=== PATIENT | male | born 1970 | race Caucasian/White ===

== ENCOUNTER 2020-07-11 09:09 | Outpatient (REF) | payer OTHER, SELFPAY ==
[2020-07-11 10:18] LABS: MANUAL DIFF FLAG NO
[2020-07-11 10:21] LABS: Glucose Urine UA NEG (NEG); Leukocyte Esterase Urine NEG (NEG); Nitrite Urine NEG (NEG); Specific Gravity - Urine 1.025 (1.005-1.025); Urine Blood NEG (NEG); Urine Ketones NEG (NEG); Urine Protein NEG (NEG-TRACE)
[2020-07-11 10:22] LABS: Appearance Urine CLEAR; Color Urine YELLOW
[2020-07-11 10:33] LABS: Eosinophils Absolute Auto 0.1 X10*3/uL (0.0-0.4); Eosinophils Percent Auto 2.3 % (0-4); Hematocrit 42.3 % (42-52); Hemoglobin 14.3 g/dl (14.0-18.0); Imm Gran Abs Auto 0.01 X10*3/uL (0.00-0.03); Imm Gran Pct Auto 0.3 % (0.0-0.4); Lymphocytes Absolute Auto 1.4 X10*3/uL (1.2-4.9); Lymphocytes Percent Auto 34.4 % (20-40); Mean Corpuscular HGB Conc 33.8 g/dl (31.0-36.0); Mean Corpuscular Hemoglobin 30.4 pg (27.0-33.0); Mean Corpuscular Volume 89.8 fL (80-98); Mean Platelet Volume 11.7 fL (9.4-12.4); Monocytes Absolute Auto 0.4 X10*3/uL (0.1-1.2); Monocytes Percent Auto 9.6 % (2-11); Neutrophils Absolute Auto 2.1 X10*3/uL (2.0-8.3); Neutrophils Percent Auto 52.4 % (45-73); Platelet Count 182 X10*3/uL (160-400); Red Blood Count 4.71 X10*6/uL (4.60-5.80); Red Cell Distribution Width 12.3 % (11.0-16.0)
[2020-07-11 10:52] LABS: Alanine Aminotransferase 48 U/L (0-40); Albumin Level 4.6 g/dL (3.5-5.0); Alkaline Phosphatase 65 U/L (39-117); Anion Gap 11 (12-20); Aspartate Amino Transferase 23 U/L (5-37); Bilirubin Total 0.7 mg/dL (0.0-1.0); Blood Urea Nitrogen 16 mg/dL (9-16); Calcium 9.3 mg/dL (8.4-10.2); Carbon Dioxide 29 mmol/L (22-29); Chloride 105 mmol/L (96-108); Cholesterol 127 mg/dL; Estimated Glomerular Filt Rate > 60; Glucose Fasting 116 mg/dL (60-99); HDL Cholesterol 26 mg/dL; LDL Cholesterol Calculated 67 mg/dl; Potassium 4.1 mmol/L (3.3-5.1); Sodium 141 mmol/L (135-145); Triglycerides 172 mg/dL
[2020-07-11 11:15] LABS: Prostate Specific Antigen Scr 0.53 ng/mL (<0.05-4.0); Vitamin D 25-OH Total 25.6 ng/mL (>30)
== END 2020-07-11 09:10 | disposition home or self-care (01) ==
LOC: HO.10HDL 09:09
PROVIDERS: Visit Provider Internal Medicine
DX: Z00.00 Encounter for general adult medical examination without abnormal findings (principal); E78.1 Pure hyperglyceridemia; K21.9 Gastro-esophageal reflux disease without esophagitis; J30.1 Allergic rhinitis due to pollen; Z12.5 Encounter for screening for malignant neoplasm of prostate
CPT/HCPCS: 36415; 80053; 80061; 81003; 82306; 84153; 85025

== ENCOUNTER 2020-10-24 08:30 | Day surgery (SDC) | payer OTHER, SELFPAY ==
--- NOTE | 2020-10-24 09:27 | HO.ANESPROP2 ---
[facility] Past Medical History Medical History GERD (gastroesophageal reflux disease) Hyperlipemia Work-related stress Surgical History Surgical History History of vasectomy Hx of tonsillectomy History of Problems with Anesthesia: No Social History Social History Patient Tobacco Use Status: Never used Tobacco Use of substances other than those prescribed or required for medical reasons: No Are you DNR?: No Advance Directives: No Advance Directives Information Provided: Yes Meds Allergies Allergy/AdvReac Type Severity Reaction Status Date / Time No Known Allergies Allergy Unverified 10/22/20 22:38 Active Medications: Current Medications Generic Name Dose Route Start Last Admin Trade Name Freq PRN Reason Stop Dose Admin Sodium Biphosphate/Sodium Phosphate 133 ml 10/24/20 09:23 Sodium Phosphate,[place]-Dibasic 133 Ml Enema [place] ONCE PRN Poor Colonoscopy Prep Results Home Medications Medication Instructions Recorded Confirmed Last Taken Type Claritin-D 24 Hour 1 tab PO DAILY 10/24/20 10/24/20 Unknown History atorvastatin 20 mg tablet 1 tab PO DAILY 10/24/20 10/24/20 Unknown History fluoxetine 20 mg capsule 1 cap PO DAILY 10/24/20 10/24/20 Unknown History gemfibrozil 600 mg tablet 1 tab PO BID 10/24/20 10/24/20 Unknown History omeprazole 20 mg capsule,delayed 1 cap PO BID 10/24/20 10/24/20 Unknown History release Exam Exam Date and Time: October 24, [id number] Airway Mallampati Class: III (Small mouth) TM Dist: >3cm Neck ROM: Full Loose/Missing/Broken Teeth: No Heart: RRR Lungs: CTA Assessment and Plan Assessment Anesthesia Assessment: Anesthesia Plan Discussed and Chart Reviewed Final Anesthetic Review History of Problems with Anesthesia: No NPO: Yes ASA Class: II Final Preanesthetic Review: Meds/Allgs Chart Reviewed, Consent Obtained/Reviewed and Anes Risks/Benef Reviewed Patient Risk: Low Procedure Risk: Intermediate Anesthetic Plan Anesthetic Plan: MAC: Disposition: Standard PACU
[2020-10-24 09:33] VITALS: BP 130/87; PULSE 74; RESP 16; TEMP 35.9; O2SAT 98; BMI 31.4
[2020-10-24] MEDS: Lactated Ringers 1,000 ML 50 ML IVCONT (10:25)
[2020-10-24 11:31] VITALS: BP 99/61; PULSE 65; RESP 16; TEMP 36.9; O2SAT 98
--- NOTE | 2020-10-24 11:35 | PM.OP ---
Brief Operative Note Date of Service: 10/24/20 Pre-op diagnosis: GERD, Screening Post-op diagnosis: other (R/O Olivas's, Hiatal hernia, Gastric and duodenal polyps, Colon polyps) Procedure: EGD with biopsies, Colonoscopy to the cecum and TI with biopsy and removal of polyps Surgeon: Kaiden Alvarez Anesthesia: MAC Was an Machine Filler Shredder used for this Procedure?: No Estimated blood loss (mL): 5.0 Pathology: other (A. EJ Junction at 38cm B. Duodenal polyp C. Gastric polyps D. Transverse colon polyp E. Cecal polyp F. Ascending colon polyp G. Polyp at 20cm) Condition: stable Disposition: PACU
[2020-10-24 11:46] VITALS: BP 123/78; PULSE 60; RESP 16; O2SAT 100
[2020-10-24 12:01] VITALS: BP 123/88; PULSE 63; RESP 16; O2SAT 98
--- NOTE | 2020-10-24 14:02 | OP_ITS ---
SURGEON: Kaiden Alvarez MD INDICATIONS: The patient presents for evaluation of gastroesophageal reflux and colorectal cancer screening. Full consent has been obtained from him for this, including risks of bleeding and perforation. PREOPERATIVE DIAGNOSIS: POSTOPERATIVE DIAGNOSIS: PROCEDURE PERFORMED: Esophagogastroduodenoscopy with biopsies, and colonoscopy to cecum and terminal ileum with biopsy and removal of polyps. ESTIMATED BLOOD LOSS: COMPLICATIONS: ANESTHESIA: Monitored anesthesia care. ASSISTANTS: SPECIMENS: PREOPERATIVE DIAGNOSES: Gastroesophageal reflux and colorectal cancer screening. POSTOPERATIVE DIAGNOSES: Gastroesophageal reflux and colorectal cancer screening, hiatal hernia, rule out Olivas's esophagus, gastric and duodenal polyps, colon polyps, diverticulosis, and internal hemorrhoids. DESCRIPTION OF PROCEDURE: The patient was placed in the left lateral decubitus position. The Olympus video gastroscope was passed in the posterior oropharynx and upper esophagus under direct vision. The scope was passed slowly into the distal esophagus. The gastroesophageal junction appeared at 38 cm. This area appeared somewhat irregular with small areas of possible Olivas's mucosa. There was no evidence of any esophagitis nor any lesions. There was a small hiatal hernia. The scope was advanced to pylorus and the duodenum was cannulated to the descending portion. The duodenum including the bulb was carefully inspected. In the duodenal bulb, was an approximately 6 to 8 mm polypoid area that probably represented José Miguel's glands, but biopsies were obtained from it. The scope was withdrawn back in the stomach. The gastric antrum and body appeared normal with good peristalsis. The scope was retroflexed visualizing the proximal stomach carefully, which appeared normal, without any mass or ulceration, other than some hyperplastic appearing gastric polyps. Two of these were biopsied. The scope was withdrawn back into the esophagus. Multiple biopsies were obtained from the EG junction at 38 cm to rule out Olivas's esophagus. Proximal to this, the esophageal mucosa appeared normal. The scope was withdrawn from the patient. He was turned around for colonoscopy. The digital rectal exam revealed no abnormalities. The Olympus video pediatric colonoscope was entered into the rectum and advanced easily to the cecum. Once in the cecum, I did identify cecal pouch with appendiceal orifice and a normal-appearing ileocecal valve. The terminal ileum was cannulated and appeared normal. The scope was withdrawn back in the colon. The entire cecum and ileocecal valve appeared normal other than a 3 mm polyp near the appendiceal orifice, that was biopsied and completely removed with cold biopsy forceps. The scope was then slowly withdrawn assessing all mucosal surfaces carefully. Preparation was excellent. In the ascending colon, transverse colon, and at 20 cm, were less than 5 mm polyps, which were all biopsied and completely removed with cold biopsy forceps. I did not visualize any other polyps, colitis, nor angiodysplasia. There was a mild amount of sigmoid diverticulosis. In the rectum, scope was retroflexed visualizing internal hemorrhoids, but no other pathology. The rectal mucosa appeared normal. The scope was straightened and withdrawn from the patient. He tolerated the procedures well and was returned to the recovery area in stable condition. IMPRESSION: 1. Gastroesophageal reflux, rule out Olivas's esophagus. 2. Hiatal hernia. 3. Gastric polyps. 4. Duodenal bulb polyp. 5. Colon polyps. 6. Diverticulosis. 7. Internal hemorrhoids. PLAN: The results of the biopsy will be checked. If there is evidence of Olivas's esophagus without dysplasia, I would recommend a repeat upper endoscopy in 3 years for surveillance. If any of the colon polyps are tubular adenoma, I would recommend a followup colonoscopy in 5 years. If they are all hyperplastic, I would recommend a followup colonoscopy in 10 years. He will otherwise see me on a p.r.n. basis. He will continue his omeprazole 40 mg daily, which is giving him good relief of the reflux. MD TAMIA Aguilera/GUNNAR / [phone]
== END 2020-10-24 12:30 | disposition home or self-care (01) ==
PROVIDERS: PCP Internal Medicine; Visit Provider Internal Medicine
PROC: (CPT 43239; principal; 2020-10-24 09:40)
DX: Z12.11 Encounter for screening for malignant neoplasm of colon (principal); D12.0 Benign neoplasm of cecum; D12.2 Benign neoplasm of ascending colon; D12.3 Benign neoplasm of transverse colon; K63.5 Polyp of colon; K57.30 Diverticulosis of large intestine without perforation or abscess without bleeding; K64.8 Other hemorrhoids; K21.9 Gastro-esophageal reflux disease without esophagitis; K31.7 Polyp of stomach and duodenum; K44.9 Diaphragmatic hernia without obstruction or gangrene; Z79.899 Other long term (current) drug therapy
CPT/HCPCS: 43239; 45380; 88305; 88342

== ENCOUNTER 2020-11-29 20:34 | Emergency (ER) | payer OTHER, SELFPAY ==
--- NOTE | ~2020-11-29 | CT_ITS ---
EXAMINATION: CT HEAD WITHOUT CONTRAST CLINICAL INFORMATION: Altered mental status. COMPARISON: None TECHNIQUE: Contiguous axial imaging was performed from the skull base to vertex without intravenous administration of contrast. This CT examination was performed using dose optimization techniques as appropriate, variously including the following: *Automated exposure control *Adjustment of mA and/or kV according to patient size (this includes techniques or standardized protocols for targeted exams where dose is matched to indication/reason for exam; i.e. extremities or head) *Use of iterative reconstruction technique DLP: 757 mGy-cm FINDINGS: There is no evidence of acute intracranial hemorrhage or territorial infarction. No abnormal mass effect or midline shift is seen. Lafleur to white matter differentiation is well preserved. No extra-axial fluid collections are identified. The ventricles are normal in size. There is no abnormal attenuation within the brain parenchyma. The osseous structures and soft tissues are normal. The mastoid air cells and visualized portions of the paranasal sinuses are well aerated. CT/CT head/brain wo con IMPRESSION: No acute intracranial pathology.
--- NOTE | ~2020-11-29 | XR_ITS ---
EXAMINATION: XR CHEST CLINICAL INFORMATION: Shortness of breath. COMPARISON: None TECHNIQUE: Frontal view of the chest was obtained. FINDINGS: The lungs are clear. The cardiomediastinal silhouette is normal in size. There is no pleural effusion or pneumothorax. No acute osseous abnormality. XR/XR chest 1V IMPRESSION: No acute cardiopulmonary findings.
[2020-11-29 20:49] VITALS: BP 147/102; PULSE 91; RESP 16; TEMP 36.8; O2SAT 96; BMI 32.1
[2020-11-29 21:23] VITALS: PULSE 84; RESP 15; TEMP 36.9; O2SAT 99
--- NOTE | 2020-11-29 21:24 | PC.NURSE ---
Pt alert and oriented x4, calm and cooperative. Pt denies pain at this time. Pt states he does not remember seizure-like episode. Pt denies headache, dizziness, weakness, or blurred vision at this time. Pt ambulated in room and steady on his feet. IV placed, intact.
[2020-11-29 21:25] LABS: MANUAL DIFF FLAG NO
[2020-11-29 21:26] LABS: Basophils Absolute Auto 0.1 X10*3/uL (0.0-0.2); Basophils Percent Auto 0.9 % (0-2); Eosinophils Absolute Auto 0.2 X10*3/uL (0.0-0.4); Eosinophils Percent Auto 4.2 % (0-4); Hematocrit 42.2 % (42-52); Hemoglobin 14.9 g/dl (14.0-18.0); Imm Gran Abs Auto 0.01 X10*3/uL (0.00-0.03); Imm Gran Pct Auto 0.2 % (0.0-0.4); Lymphocytes Absolute Auto 1.8 X10*3/uL (1.2-4.9); Lymphocytes Percent Auto 33.6 % (20-40); Mean Corpuscular HGB Conc 35.3 g/dl (31.0-36.0); Mean Corpuscular Volume 87.9 fL (80-98); Mean Platelet Volume 12.3 fL (9.4-12.4); Monocytes Absolute Auto 0.8 X10*3/uL (0.1-1.2); Monocytes Percent Auto 14.7 % (2-11); Neutrophils Absolute Auto 2.5 X10*3/uL (2.0-8.3); Neutrophils Percent Auto 46.4 % (45-73); Platelet Count 152 X10*3/uL (160-400); Red Cell Distribution Width 12.5 % (11.0-16.0); White Blood Count 5.3 X10*3/uL (4.8-10.8)
--- NOTE | 2020-11-29 21:49 | ECG_ITS ---
Test Reason : SYNCOPE Blood Pressure : / mmHG Vent. Rate : 086 BPM Atrial Rate : 086 BPM P-R Int : 146 ms QRS Dur : 102 ms QT Int : 364 ms P-R-T Axes : 047 049 009 degrees QTc Int : 435 ms Normal sinus rhythm Normal ECG When compared with ECG of 15-MAY-2004 08:04, No significant change was found Referred By: Abbey Graf Electronically Signed By:ELMA TROY
[2020-11-29 21:56] LABS: Alanine Aminotransferase 76 U/L (0-40); Albumin Level 4.8 g/dL (3.5-5.0); Alkaline Phosphatase 74 U/L (39-117); Anion Gap 14 (12-20); Aspartate Amino Transferase 41 U/L (5-37); Bilirubin Total 0.5 mg/dL (0.0-1.0); Blood Urea Nitrogen 13 mg/dL (9-16); Calcium 9.2 mg/dL (8.4-10.2); Carbon Dioxide 23 mmol/L (22-29); Chloride 108 mmol/L (96-108); Creatinine Clr Calc Pharmacy 113.1; Estimated Glomerular Filt Rate > 60; Glucose Random 98 mg/dL (60-115); Sodium 141 mmol/L (135-145); Total Protein 7.7 g/dL (6.5-8.0)
--- NOTE | 2020-11-29 22:10 | ED_ITS ---
HPI - General Adult General Chief complaint: General Medical Stated complaint: started shaky then passed out Time Seen by Provider: 11/29/20 21:41 History of Present Illness HPI narrative: Patient is a 49-year-old male with a history of coughing upper respiratory symptoms. Patient has been tested for COVID many x2 are negative. Also had COVID vaccine over 2 weeks ago x2. Patient had a coughing spell subsequently felt lightheaded. Eyes roll back. Patient had a syncopal episode. There is no chest pain prior. No diaphoresis. Did feel weak prior. Did not notice any blood in his stool. Is not on any blood thinners. No history of diabetes. No history of high blood pressure. Positive history of high cholesterol. Patient does not smoke. Never had a heart attack never had a stress test. Patient from home. No history of syncope in the past. Did not have any alcohol tonight. No history of blood clots. No history of leg swelling. No history of travel. Related Data Home Medications Medication Instructions Recorded Confirmed Claritin-D 24 Hour 1 tab PO DAILY 10/24/20 10/24/20 atorvastatin 20 mg tablet 1 tab PO DAILY 10/24/20 10/24/20 fluoxetine 20 mg capsule 1 cap PO DAILY 10/24/20 10/24/20 gemfibrozil 600 mg tablet 1 tab PO BID 10/24/20 10/24/20 omeprazole 20 mg capsule,delayed 1 cap PO BID 10/24/20 10/24/20 release Allergies Allergy/AdvReac Type Severity Reaction Status Date / Time No Known Allergies Allergy Verified 11/29/20 21:08 Review of Systems Review of Systems: Positive syncopal episode Positive coughing No nausea no vomiting No diaphoresis All systems reviewed otherwise negative Yes all other systems are reviewed and are negative [facility] Past Medical History Attestation statement: The following information was validated with the patient. Source: unable to obtain Medical History GERD (gastroesophageal reflux disease) Hyperlipemia Work-related stress Surgical History History of vasectomy Hx of tonsillectomy Social History Social History Alcohol intake: never Patient Tobacco Use Status: Never used Tobacco Use of substances other than those prescribed or required for medical reasons: No Advance Directives: No Advance Directives Information Provided: No Physical Exam Vital Signs: Vital Signs: Last Vital Signs Temp 98.4 F 11/29/20 21:23 Pulse 85 11/29/20 22:26 Resp 18 11/29/20 22:26 BP 157/84 H 11/29/20 22:26 Pulse Ox 99 11/29/20 22:26 Body Mass Index 32.1 Appearance: Alert. Oriented X3. No acute distress. Eyes: Pupils equal, round and reactive to light. ENT: Pharynx normal. Neck: Normal inspection. Neck supple. No lymph nodes noted. No crepitus CVS: Normal heart rate and rhythm. Pulses normal. Normal S1 and S2 Respiratory: No respiratory distress. Breath sounds normal. No Wheezing. No rales Abdomen: Soft and nontender. No rigidity. No distention. good BS x4 Skin: Skin warm and dry. Normal skin color. Normal skin turgor. Extremities: No lower extremity edema. Neurovascular intact to all extremities. No Lacerations. No Rash Neuro: Oriented X 3. No motor deficit. No sensory deficit. Moving all extermities. No slurred speech Medical Decision Making MDM Narrative Medical decision making narrative: Patient EKG showed a sinus pattern heart rate is 90 ME QRS QT within normal limits as no acute ST segment elevation noted. Patient's troponin is negative. Not orthostatic. COVID test was negative. Chest x-ray showed no focal infiltrate no pneumonia. Patient's history consistent with having vasovagal episode. Has no significant cardiac risk. Has no chest pain at the time when he had a syncopal episode. Patient felt ligh theaded dizzy prior. Will discharge patient home in stable condition. Lab Data Result diagrams: 11/29/20 21:20 11/29/20 21:20 Labs: Lab Results 11/29/20 11/29/20 11/29/20 Range/Units 21:20 21:20 21:20 WBC 5.3 (4.8-10.8) X10*3/uL RBC 4.80 (4.60-5.80) X10*6/uL Hgb 14.9 (14.0-18.0) g/dl Hct 42.2 (42-52) % MCV 87.9 (80-98) fL MCH 31.0 (27.0-33.0) pg MCHC 35.3 (31.0-36.0) g/dl RDW 12.5 (11.0-16.0) % Plt Count 152 L (160-400) X10*3/uL MPV 12.3 (9.4-12.4) fL Immature Gran % (Auto) 0.2 (0.0-0.4) % Neut % (Auto) 46.4 (45-73) % Lymph % (Auto) 33.6 (20-40) % Brantley % (Auto) 14.7 H (2-11) % Eos % (Auto) 4.2 H (0-4) % Baso % (Auto) 0.9 (0-2) % Lymph # (Auto) 1.8 (1.2-4.9) X10*3/uL Brantley # (Auto) 0.8 (0.1-1.2) X10*3/uL Eos # (Auto) 0.2 (0.0-0.4) X10*3/uL Baso # (Auto) 0.1 (0.0-0.2) X10*3/uL Abs Immat Gran (auto) 0.01 (0.00-0.03) X10*3/uL Absolute Neuts (auto) 2.5 (2.0-8.3) X10*3/uL Absolute Nucleated RBC 0.000 (0.0-0.012) X10*3/uL Nucleated RBC % (auto) 0.0 (0.0-0.2) /100WBC Sodium 141 (135-145) mmol/L Potassium 4.0 (3.3-5.1) mmol/L Chloride 108 (96-108) mmol/L Carbon Dioxide 23 (22-29) mmol/L Anion Gap 14 (12-20) BUN 13 (9-16) mg/dL Creatinine 0.96 (0.5-1.4) mg/dL Estim Creat Clear Calc 113.1 Estimated GFR > 60 Random Glucose 98 (60-115) mg/dL Calcium 9.2 (8.4-10.2) mg/dL Total Bilirubin 0.5 (0.0-1.0) mg/dL AST 41 H D (5-37) U/L ALT 76 H (0-40) U/L Alkaline Phosphatase 74 (39-117) U/L Troponin I High Sens < 3.5 (<3.5-35.0) ng/L Total Protein 7.7 (6.5-8.0) g/dL Albumin 4.8 (3.5-5.0) g/dL COVID-19 (JOSE) (Negative) COVID-19 Clin Com 11/29/20 Range/Units 22:34 WBC (4.8-10.8) X10*3/uL RBC (4.60-5.80) X10*6/uL Hgb (14.0-18.0) g/dl Hct (42-52) % MCV (80-98) fL MCH (27.0-33.0) pg MCHC (31.0-36.0) g/dl RDW (11.0-16.0) % Plt Count (160-400) X10*3/uL MPV (9.4-12.4) fL Immature Gran % (Auto) (0.0-0.4) % Neut % (Auto) (45-73) % Lymph % (Auto) (20-40) % Brantley % (Auto) (2-11) % Eos % (Auto) (0-4) % Baso % (Auto) (0-2) % Lymph # (Auto) (1.2-4.9) X10*3/uL Brantley # (Auto) (0.1-1.2) X10*3/uL Eos # (Auto) (0.0-0.4) X10*3/uL Baso # (Auto) (0.0-0.2) X10*3/uL Abs Immat Gran (auto) (0.00-0.03) X10*3/uL Absolute Neuts (auto) (2.0-8.3) X10*3/uL Absolute Nucleated RBC (0.0-0.012) X10*3/uL Nucleated RBC % (auto) (0.0-0.2) /100WBC Sodium (135-145) mmol/L Potassium (3.3-5.1) mmol/L Chloride (96-108) mmol/L Carbon Dioxide (22-29) mmol/L Anion Gap (12-20) BUN (9-16) mg/dL Creatinine (0.5-1.4) mg/dL Estim Creat Clear Calc Estimated GFR Random Glucose (60-115) mg/dL Calcium (8.4-10.2) mg/dL Total Bilirubin (0.0-1.0) mg/dL AST (5-37) U/L ALT (0-40) U/L Alkaline Phosphatase (39-117) U/L Troponin I High Sens (<3.5-35.0) ng/L Total Protein (6.5-8.0) g/dL Albumin (3.5-5.0) g/dL COVID-19 (JOSE) Negative (Negative) COVID-19 Clin Com See Note Discharge Plan Discharge Clinical Impression: Syncope Patient Disposition: Home, Self-Care Instructions: Syncope (ED) Prescriptions: No Action atorvastatin 20 mg tablet 1 tab PO DAILY RF: 0 omeprazole 20 mg capsule,delayed release(DR/EC) 1 cap PO BID RF: 0 fluoxetine 20 mg capsule 1 cap PO DAILY RF: 0 gemfibrozil 600 mg tablet 1 tab PO BID RF: 0 Claritin-D 24 Hour 1 tab PO DAILY RF: 0 Referrals: Akash Daigle MD [Primary Care Provider] - 2 days
[2020-11-29 22:22] LABS: Troponin-I High Sensitivity < 3.5 ng/L (<3.5-35.0)
[2020-11-29 22:23] VITALS: BP 144/82; PULSE 84
[2020-11-29 22:24] VITALS: BP 157/82; PULSE 86
[2020-11-29 22:25] VITALS: BP 157/84; PULSE 85
[2020-11-29 22:26] VITALS: BP 157/84; PULSE 85; RESP 18; O2SAT 99
[2020-11-29 23:15] LABS: COVID-19 Test Negative (Negative); IDNOW Serial# 55D5AD1C
[2020-11-30 01:00] VITALS: BP 136/82; PULSE 76; TEMP 37; O2SAT 95
--- NOTE | 2020-11-30 01:08 | PC.NURSE ---
Pt alert and oriented x4, calm and cooperative. Pt denies pain. Pt ambulating independently and steady on his feet. Pt denies weakness, dizziness, or blurred vision at this time. Pt and educated on dc by RN and . IV removed. Vitals stable.
== END 2020-11-30 01:09 | disposition home or self-care (01) ==
PROVIDERS: Emergency Provider Emergency Medicine Emergency Medical Services; PCP Internal Medicine
DX: R55 Syncope and collapse (principal); R05.9 Cough, unspecified; Z20.822 Contact with and (suspected) exposure to COVID-19; Z79.899 Other long term (current) drug therapy
CPT/HCPCS: 36415; 70450; 71045; 80053; 84484; 85025; 87635; 93005; 99284

== ENCOUNTER 2021-07-02 08:32 | Outpatient (REF) | payer SELFPAY ==
[2021-07-02 08:43] LABS: MANUAL DIFF FLAG NO
[2021-07-02 09:13] LABS: Basophils Percent Auto 0.5 % (0-2); Eosinophils Absolute Auto 0.1 X10*3/uL (0.0-0.4); Hemoglobin 15.6 g/dl (14.0-18.0); Imm Gran Abs Auto 0.03 X10*3/uL (0.00-0.03); Imm Gran Pct Auto 0.5 % (0.0-0.4); Lymphocytes Absolute Auto 1.2 X10*3/uL (1.2-4.9); Lymphocytes Percent Auto 18.6 % (20-40); Mean Corpuscular HGB Conc 34.7 g/dl (31.0-36.0); Mean Corpuscular Hemoglobin 30.5 pg (27.0-33.0); Mean Corpuscular Volume 87.9 fL (80.0-98.0); Mean Platelet Volume 11.1 fL (9.4-12.4); Monocytes Absolute Auto 0.7 X10*3/uL (0.1-1.2); Monocytes Percent Auto 10.4 % (2-11); Neutrophils Absolute Auto 4.4 x10*3/uL (2.0-8.3); Platelet Count 187 X10*3/uL (160-400); Red Blood Count 5.12 X10*6/uL (4.60-5.80); Red Cell Distribution Width 12.3 % (11.0-16.0); White Blood Count 6.5 X10*3/uL (4.8-10.8)
[2021-07-02 09:25] LABS: Appearance Urine CLEAR; Color Urine YELLOW; Glucose Urine UA NEG (NEG); Leukocyte Esterase Urine NEG (NEG); Nitrite Urine NEG (NEG); Specific Gravity - Urine 1.025 (1.005-1.025); Urine Blood NEG (NEG); Urine Ketones NEG (NEG); Urine Protein NEG (NEG-TRACE)
[2021-07-02 09:34] LABS: Alanine Aminotransferase 61 U/L (0-40); Albumin Level 4.6 g/dL (3.5-5.0); Alkaline Phosphatase 79 U/L (39-117); Anion Gap 13 (12-20); Aspartate Amino Transferase 36 U/L (5-37); Blood Urea Nitrogen 22 mg/dL (9-16); Calcium 9.6 mg/dL (8.4-10.2); Carbon Dioxide 27 mmol/L (22-29); Chloride 103 mmol/L (96-108); Cholesterol 150 mg/dL; Estimated Glomerular Filt Rate > 60; Glucose Fasting 116 mg/dL (60-99); HDL Cholesterol 24 mg/dL; LDL Cholesterol Calculated 72 mg/dl; Potassium 4.7 mmol/L (3.3-5.1); Sodium 138 mmol/L (135-145); Total Protein 7.3 g/dL (6.5-8.0); Triglycerides 274 mg/dL
[2021-07-02 09:54] LABS: Prostate Specific Antigen 0.47 ng/mL (<0.05-4.0); Vitamin D 25-OH Total 30.5 ng/mL (>30)
== END 2021-07-02 08:33 | disposition home or self-care (01) ==
LOC: HO.LAB 08:32
PROVIDERS: PCP Internal Medicine; Visit Provider Internal Medicine
DX: Z00.00 Encounter for general adult medical examination without abnormal findings (principal); Z12.5 Encounter for screening for malignant neoplasm of prostate
CPT/HCPCS: 36415; 80053; 80061; 81003; 82306; 84153; 85025

== ENCOUNTER 2022-07-14 10:03 | Outpatient (REF) | payer OTHER, SELFPAY ==
[2022-07-14 10:34] LABS: MANUAL DIFF FLAG NO
[2022-07-14 10:47] LABS: Basophils Percent Auto 0.7 % (0-2); Eosinophils Absolute Auto 0.1 X10*3/uL (0.0-0.4); Eosinophils Percent Auto 2.1 % (0-4); Hematocrit 43.2 % (42.0-52.0); Lymphocytes Absolute Auto 1.5 X10*3/uL (1.2-4.9); Lymphocytes Percent Auto 35.4 % (20-40); Mean Corpuscular HGB Conc 34.7 g/dl (31.0-36.0); Mean Corpuscular Hemoglobin 30.7 pg (27.0-33.0); Mean Corpuscular Volume 88.3 fL (80.0-98.0); Mean Platelet Volume 11.3 fL (9.4-12.4); Monocytes Absolute Auto 0.4 X10*3/uL (0.1-1.2); Monocytes Percent Auto 9.4 % (2-11); Neutrophils Absolute Auto 2.3 x10*3/uL (2.0-8.3); Neutrophils Percent Auto 52.4 % (45-73); Platelet Count 192 X10*3/uL (160-400); Red Blood Count 4.89 X10*6/uL (4.60-5.80); Red Cell Distribution Width 12.1 % (11.0-16.0); White Blood Count 4.4 X10*3/uL (4.8-10.8)
[2022-07-14 11:29] LABS: Alanine Aminotransferase 36 U/L (0-40); Albumin Level 4.6 g/dL (3.5-5.0); Alkaline Phosphatase 62 U/L (39-117); Anion Gap 11 (12-20); Aspartate Amino Transferase 25 U/L (5-37); Bilirubin Total 0.8 mg/dL (0.0-1.0); Blood Urea Nitrogen 17 mg/dL (9-16); Calcium 9.4 mg/dL (8.4-10.2); Carbon Dioxide 27 mmol/L (22-29); Chloride 108 mmol/L (96-108); Cholesterol 135 mg/dL; Estimated Glomerular Filt Rate > 60; Glucose Fasting 106 mg/dL (60-99); HDL Cholesterol 31 mg/dL; LDL Cholesterol Calculated 61 mg/dl; Potassium 4.4 mmol/L (3.3-5.1); Sodium 142 mmol/L (135-145); Triglycerides 218 mg/dL
== END 2022-07-14 10:04 | disposition home or self-care (01) ==
LOC: HO.10HDL 10:03
PROVIDERS: Visit Provider Internal Medicine
DX: Z12.5 Encounter for screening for malignant neoplasm of prostate (principal); K21.9 Gastro-esophageal reflux disease without esophagitis; E78.5 Hyperlipidemia, unspecified; G47.33 Obstructive sleep apnea (adult) (pediatric); R35.1 Nocturia
CPT/HCPCS: 36415; 80053; 80061; 84153; 85025

== ENCOUNTER 2022-10-18 09:02 | Outpatient (REF) | payer OTHER, SELFPAY ==
[2022-10-18 11:06] LABS: Cholesterol 138 mg/dL (<200); HDL Cholesterol 27 mg/dL (>40); Triglycerides 458 mg/dL (<150)
== END 2022-10-18 09:03 | disposition home or self-care (01) ==
LOC: HO.10HDL 09:02
PROVIDERS: Visit Provider Internal Medicine
DX: E78.00 Pure hypercholesterolemia, unspecified (principal)
CPT/HCPCS: 36415; 80061

== ENCOUNTER 2023-02-02 10:25 | Outpatient (REF) | payer OTHER, SELFPAY ==
[2023-02-02 13:42] LABS: Cholesterol 156 mg/dL (<200); HDL Cholesterol 27 mg/dL (>40); LDL Cholesterol Calculated 69 mg/dL (<100); Triglycerides 300 mg/dL (<150)
== END 2023-02-02 10:26 | disposition home or self-care (01) ==
LOC: HO.10HDL 10:25
PROVIDERS: Visit Provider Internal Medicine
DX: R79.89 Other specified abnormal findings of blood chemistry (principal)
CPT/HCPCS: 36415; 80061

== ENCOUNTER 2023-06-10 08:24 | Outpatient (REF) | payer OTHER, SELFPAY ==
[2023-06-10 12:23] LABS: Cholesterol 134 mg/dL (<200); HDL Cholesterol 22 mg/dL (>40); LDL Cholesterol Calculated 34 mg/dL (<100); Triglycerides 390 mg/dL (<150)
== END 2023-06-10 08:25 | disposition home or self-care (01) ==
LOC: HO.10HDL 08:24
PROVIDERS: Visit Provider Internal Medicine
DX: E78.00 Pure hypercholesterolemia, unspecified (principal)
CPT/HCPCS: 36415; 80061

== ENCOUNTER 2024-08-08 07:58 | Outpatient (REF) | payer OTHER, SELFPAY ==
[2024-08-08 09:58] LABS: MANUAL DIFF FLAG NO
[2024-08-08 10:35] LABS: Basophils Percent Auto 0.8 % (0-2); Eosinophils Absolute Auto 0.1 X10*3/uL (0.0-0.4); Eosinophils Percent Auto 2.3 % (0-4); Hematocrit 42.1 % (42.0-52.0); Hemoglobin 14.7 g/dl (14.0-18.0); Imm Gran Abs Auto 0.02 X10*3/uL (0.00-0.03); Imm Gran Pct Auto 0.5 % (0.0-0.4); Lymphocytes Absolute Auto 1.5 X10*3/uL (1.2-4.9); Lymphocytes Percent Auto 39.4 % (20-40); Mean Corpuscular HGB Conc 34.9 g/dl (31.0-36.0); Mean Corpuscular Hemoglobin 31.1 pg (27.0-33.0); Mean Platelet Volume 11.5 fL (9.4-12.4); Monocytes Absolute Auto 0.4 X10*3/uL (0.1-1.2); Monocytes Percent Auto 10.9 % (2-11); Neutrophils Absolute Auto 1.8 x10*3/uL (2.0-8.3); Neutrophils Percent Auto 46.1 % (45-73); Platelet Count 188 X10*3/uL (160-400); Red Blood Count 4.73 X10*6/uL (4.60-5.80); Red Cell Distribution Width 11.9 % (11.0-16.0); White Blood Count 3.9 X10*3/uL (4.8-10.8)
[2024-08-08 10:37] LABS: Estimated Average Glucose 123 mg/dL; Hemoglobin A1c % 5.9 % (<6.0); Total Hemoglobin (HGBA1C) 3867.8851 umol/L
[2024-08-08 10:38] LABS: Anion Gap 9 (12-20); Blood Urea Nitrogen 18 mg/dL (9-16); Calcium 9.1 mg/dL (8.4-10.2); Carbon Dioxide 26 mmol/L (22-29); Chloride 106 mmol/L (96-108); Cholesterol 141 mg/dL (<200); Estimated Glomerular Filt Rate > 60; Glucose Random 128 mg/dL (60-115); HDL Cholesterol 24 mg/dL (>40); LDL Cholesterol Calculated 48 mg/dL (<100); Potassium 4.1 mmol/L (3.3-5.1); Sodium 137 mmol/L (135-145); Triglycerides 348 mg/dL (<150)
[2024-08-08 10:53] LABS: Prostate Specific Antigen 0.62 ng/mL (<0.05-4.0)
== END 2024-08-08 07:59 | disposition home or self-care (01) ==
LOC: HO.10HDL 07:58
PROVIDERS: Visit Provider Physician Assistant
DX: Z00.00 Encounter for general adult medical examination without abnormal findings (principal); Z12.5 Encounter for screening for malignant neoplasm of prostate; Z13.1 Encounter for screening for diabetes mellitus; Z13.220 Encounter for screening for lipoid disorders; Z13.0 Encounter for screening for diseases of the blood and blood-forming organs and certain disorders involving the immune mechanism
CPT/HCPCS: 36415; 80048; 80061; 83036; 84153; 85025

== ENCOUNTER 2024-08-21 12:59 | Outpatient (AMB) | payer OTHER, SELFPAY ==
--- NOTE | 2024-08-21 13:08 | A.OFFPC_ITS ---
Vital Signs 08/21/24 13:11 08/21/24 13:50 Height 5 ft 11 in Weight 103.419 kg BMI 31.8 BP 158/112 H 140/92 H Respiration 16 Pulse 69 Pulse Source Pulse Oximeter Temp 97.7 F Temp Source Temporal Artery Scan Pulse Oximetry (%) 97 Oxygen Delivery Method Room Air Intake Visit Reasons: Annual Sports Athletic Trainer Required: No Accompanied by: Self / Same As Patient Allergies No Known Allergies Allergy (Verified 08/21/24 13:08) HPI HPI Comments History of Present Illness Details 53-year-old male with history of hyperli pidemia/hypertriglyceridemia, anxiety, GERD, alcohol use disorder presents to the office today for management of chronic conditions and for annual physical exam. He lives at home with his . 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 He had significant work-related stress which he does feel is reduced since retiring. He is an avid biker and hiker. He does follow a low-carbohydrate diet. He denies any cigarette smoking or illicit drug use. No marijuana use. He does have two drinks nightly (bourbon and maybe glass of red wine but does not measure these). Hyperlipidemia/hypertriglyceridemia-taking atorvastatin 20 mg and fenofibrate 160 mg daily. Does try a healthy diet and exercises regularly as above. Total cholesterol 141, HDL 24, LDL 48, triglycerides 348. Labs were done fasting Elevated blood pressure-no prior history of hypertension. Blood pressure on recheck in the office 140/92 GERD-controlled omeprazole Anxiety-attempted to taper off of fluoxetine but his noted some agitation so he remains on fluoxetine 20 mg daily. [place] 7 score 4 Prediabetes-new diagnosis with hemoglobin A1c 5.9% Concerns: None Health maintenance: Last endoscopy 4 years ago-abnormal endoscopy though no Barretts esophagus. Three year follow-up Last colonoscopy 4 years ago-5 year follow-up advised, due 2025. Dr. Alvarez PSA screening up-to-date Past medical, family, social, surgical history reviewed ROS: General: No fevers, malaise, unintentional weight loss HEENT: No blurred vision, diplopia. No sore throat, nasal congestion, rhinorrhea, sinus pain, ear pain Neck - no adenopathy Cardiovascular: No chest pain, palpitations, or leg edema Respiratory: No shortness of breath, wheezing, cough GI: No abdominal pain, nausea, vomiting, diarrhea, constipation, melena, hematochezia : No dysuria, hematuria, increased urinary frequency, decreased urinary output MSK: No myalgia, back pain, arthralgias Neuro: No headaches, weakness, paresthesias Psych: no depression/anxiery. No AH/VH. No SI/HI Skin: No rashes or lesions EXAM: Constitutional - Awake and Alert, No apparent distress Eyes - PERRLA, EOMI. Anicteric Ears-external ears normal, canals without any edema or erythema but with cerumen impaction obstructing visual of TMs Nose- septum midline, nares clear, no sinus tenderness Mouth/throat- mucosa moist, tongue and uvula midline, no erythema/edema or tonsillar adenopathy. Neck-trachea midline, thyroid symmetric without palpable nodules, no adenopathy Cardiovascular - S1S2, RRR, No edema Respiratory - Normal lung expansion, Normal respiratory effort, No respiratory distress, CTA bilaterally Gastrointestinal - NT / ND; +BS; No rebound or guarding - No CVA tenderness Extremities - no calf tenderness bilaterally, no swelling Musculoskeletal - Normal inspection, normal ROM Skin - Warm/Dry Neurological - Alert & oriented x3, CN II-XII in tact, 5/5 strength BUE and BLE Psychological - Appropriate affect [facility] Medical History (Updated 08/21/24 @ 15:32 by SAMI Monique) Anxiety Prediabetes Hypertriglyceridemia Work-related stress Hyperlipemia GERD (gastroesophageal reflux disease) Surgical History History of vasectomy Hx of tonsillectomy Family History (Updated 08/21/24 @ 13:20 by SAMI Monique) Father AML (acute myeloblastic leukemia) Social History (Updated 08/21/24 @ 13:19 by SAMI Monique) Alcohol intake: current Alcohol intake frequency: a few times a week Alcohol type: hard liquor Patient Tobacco Use Status: Never used Tobacco Questionnaire PHQ-9 Over the last 2 weeks, how often have you been bothered by any of the following problems? 1. Little interest or pleasure in doing things: not at all 2. Feeling down, depressed, or hopeless: not at all 3. Trouble falling or staying asleep, or sleeping too much: not at all 4. Feeling tired or having little energy: not at all 5. Poor appetite or overeating: not at all 6. Feeling bad about yourself - or that you are a failure or have let yourself or your family down: not at all 7. Trouble concentrating on things, such as reading the newspaper or watching television: not at all 8. Moving or speaking so slowly that other people could have noticed. Or the opposite - being so fidgety or restless that you have been moving around a lot more than usual: not at all 9. Thoughts that you would be better off or of hurting yourself in some way: not at all Total score: 0 Depression Screening Interpretation: Negative 19818 - PHQ-9 Billing: Yes Source: Developed by Drs. Kaiden Durant, Caryl Thompson, Kendall Moran and colleagues, with an educational sarah from [email or web address]. Thrive Questionnaire Date Thrive assessed: 08/21/24 I am a: Patient What is your living situation today?: I have a steady place to live Within the past 12 months, did the food you bought not last and you didn't have the money to get more?: Never true Within the past 12 months, did you worry whether your food would run out before you got money to buy more?: Never true Do you have trouble paying for medicines?: No Do you have trouble getting transportation to medical appointments?: No Do you have trouble paying your heating and electricity bill?: No Do you have trouble taking care of your child, family member or friend?: No Do you have trouble with day-to-day activities such as bathing, preparing meals, shopping, managing finances, etc.?: No Are you currently unemployed and looking for a job?: No Are you interested in more education?: No Please select the resources that you would like help with: None THRIVE Score: 0 HOUSTON-7 AMB Questionnaire HOUSTON-7 Date HOUSTON - 7 assessed: 08/21/24 Feeling nervous, anxious, or on edge: 1 = Several days Not being able to stop or control worryin = Not at all Worrying too much about different things: 1 = Several days Trouble relaxin = Several days Being so restless that it is hard to sit still: 0 = Not at all Becoming easily annoyed or irritable: 1 = Several days Feeling afraid as if something awful might happen: 0 = Not at all Total HOUSTON-7 score (0-4 normal; 5-9 mild; 10-14 moderate; 15-21 severe): 4 Source: Developed by Drs. Kaiden Durant, Caryl Thompson, Kendall Moran and colleagues, with an educational sarah from [email or web address]. Physical exam (Primary Care) Vital Signs: Last Vital Signs Temp 97.7 F 08/21/24 13:11 Pulse 69 08/21/24 13:11 Resp 16 08/21/24 13:11 BP 140/92 H 08/21/24 13:50 Pulse Ox 97 08/21/24 13:11 Oxygen Delivery Method Room Air 08/21/24 13:11 BMI result Body Mass Index 31.8 Tobacco/Smoking Status: Tobacco use Status Patient Tobacco Use Status Never used Tobacco 08/21/24 13:19 PHQ-9: PHQ-9 Score PHQ-9: Total score 0 08/21/24 13:54 Depression Screening Interpretation: Negative Thrive Assessment: Date of Thrive Assessment Date Thrive assessed 08/21/24 08/21/24 13:54 Coding Level of Care Code Est Pt Level 4 (92611) Est Pt Prev Care 40-64y(45605) Diagnoses Encounter for routine history and physical examination Z00.00 Prediabetes R73.03 Hypertriglyceridemia E78.1 Hyperlipemia E78.5 Anxiety F41.9 Excessive consumption of ethanol F10.10 Elevated blood pressure reading R03.0 Cerumen impaction H61.20 Additional Codes PHQ-9 - 80022 - PHQ-9 Billing: Yes ([id number]) Assessment & Plan Assessment & Plan (1) Encounter for routine history and physical examination: Code(s): Z00.00 - Encounter for general adult medical examination without abnormal findings Plan: 53-year-old male presenting for annual physical exam. Plan as below (2) Prediabetes: Code(s): R73.03 - Prediabetes Category: Medical Plan: A1c 5.9%. Counseled on diabetic diet. (3) Hypertriglyceridemia: Code(s): E78.1 - Pure hyperglyceridemia Category: Medical Plan: Continue fenofibrate as well as dietary management. Recommend adding fish oil. Recommend cutting back on alcohol intake as this likely is affecting his triglyceride levels (4) Hyperlipemia: Code(s): E78.5 - Hyperlipidemia, unspecified Category: Medical Plan: LDL at goal. HDL is low. Recommend adding fish oil. Continue atorvastatin 20 mg daily. (5) Anxiety: Code(s): F41.9 - Anxiety disorder, unspecified Category: Medical Plan: Stable. [place] 7 score 4. Continue fluoxetine (6) Excessive consumption of ethanol: Code(s): F10.10 - Alcohol abuse, uncomplicated Category: Social Hx Plan: Consult on recommended alcohol consumption for male. Recommend measuring out ho w much alcohol he is actually consuming. Recommend decreasing consumption given new onset prediabetes as well as persistent hypertriglyceridemia. (7) Elevated blood pressure reading: Code(s): R03.0 - Elevated blood-pressure reading, without diagnosis of hypertension Category: Medical Plan: Follow-up in the office next week for blood pressure check. If blood pressures remain elevated, will recommend initiating therapy (8) Cerumen impaction: Code(s): H61.20 - Impacted cerumen, unspecified ear Category: Medical Plan: Debrox drops prescribed. Presents to the office in 1 week for cerumen removal Plan Follow-up in the office in 1 week Routine screening labs as ordered below Continue with screening colonoscopies and PSA Continue following for annual skin exams and use sun protection Annual eye exams Wear seat belt in car Recommend regular exercise and healthy diet Orders: Referrals Gastroenterology Referral R93.3 - Abnormal findings on diagnostic imaging of other parts of digestive tract Gastroenterology Referral E78.1 - Pure hyperglyceridemia, E78.5 - Hyperlipidemia, unspecified, F41.9 - Anxiety disorder, unspecified, R73.03 - Prediabetes, R93.3 - Abnormal findings on diagnostic imaging of other parts of digestive tract, Z00.00 - Encounter for general adult medical examination witho ut abnormal findings Medications: New carbamide peroxide 6.5% (Debrox) 5 drps otic (ear) left Q12H 15 mL 0RF 4 days
[2024-08-21 13:11] VITALS: BP 158/112; PULSE 69; RESP 16; TEMP 36.5; O2SAT 97; BMI 31.8
[2024-08-21 13:50] VITALS: BP 140/92
== END 2024-08-21 13:51 | disposition home or self-care (01) ==
LOC: HO.HMCHD 13:00
PROVIDERS: PCP Physician Assistant; Visit Provider Physician Assistant
DX: Z00.00 Encounter for general adult medical examination without abnormal findings (principal); H61.23 Impacted cerumen, bilateral; R73.03 Prediabetes; E78.1 Pure hyperglyceridemia; E78.5 Hyperlipidemia, unspecified; F41.9 Anxiety disorder, unspecified; F10.10 Alcohol abuse, uncomplicated; R03.0 Elevated blood-pressure reading, without diagnosis of hypertension

== ENCOUNTER → 2024-08-21 12:59 | Outpatient (BNVA) | payer OTHER, SELFPAY | PROVIDERS: PCP Physician Assistant; Visit Provider Physician Assistant | DX: Z00.00 Encounter for general adult medical examination without abnormal findings (principal); Z13.31 Encounter for screening for depression; R73.03 Prediabetes; E78.1 Pure hyperglyceridemia; E78.5 Hyperlipidemia, unspecified; F41.9 Anxiety disorder, unspecified; F10.10 Alcohol abuse, uncomplicated; R03.0 Elevated blood-pressure reading, without diagnosis of hypertension; H61.23 Impacted cerumen, bilateral | CPT/HCPCS: 96127 ==

== ENCOUNTER 2024-08-28 09:01 | Outpatient (AMB) | payer OTHER, SELFPAY ==
--- NOTE | 2024-08-28 09:03 | A.OFFPC_ITS ---
Vital Signs 08/28/24 09:04 08/28/24 09:56 Weight 103.419 kg BP 142/94 H 103/57 L Blood Pressure Location Rt brachial Position Sitting Pulse 72 Pulse Source Pulse Oximeter Temp 97.1 F Temp Source Temporal Artery Scan Pulse Oximetry (%) 97 Oxygen Delivery Method Room Air Intake Visit Reasons: 1 week BP f/u Allergies No Known Allergies Allergy (Verified 08/28/24 09:07) Medication List - Last Reconciled 08/28/24 by SAMI Monique atorvastatin 20 mg PO DAILY carbamide peroxide 6.5% (Debrox) 5 drps otic (ear) left Q12H 4 days cholecalciferol (vitamin D3) 25 mcg PO DAILY fenofibrate 160 mg PO DAILY fluoxetine 20 mg PO DAILY magnesium oxide 800 mg PO DAILY omega 8-zpj-poe-fish oil 1,000 (120-180) mg (Fish Oil) 1 cap PO DAILY omeprazole 40 mg PO DAILY HPI HPI Comments History of Present Illness Details 53-year-old male with history of hyperli pidemia/hypertriglyceridemia, anxiety, GERD, alcohol use disorder presents to the office today for Blood pressure follow-up and cerumen removal. Hypertension-initial blood pressure 142/94 manually with electronic follow-up BP 103/57. Blood pressure was difficult to auscultate. Not on antihypertensives. Continues with muffled hearing in the left ear Cerumen impaction-has been using Debrox ROS: General: No fevers, malaise, unintentional weight loss HEENT: see hpi Cardiovascular: No chest pain, palpitations, or leg edema Respiratory: No shortness of breath, wheezing, cough MSK: No myalgia, back pain Neuro: No headaches, weakness, paresthesias Skin: No rashes or lesions EXAM: Constitutional - Awake and Alert, No apparent distress Eyes - PERRL Ears - right canal clear, external ear normal, TM pearly mccullough with good cone of light, scant cerumen without any impaction. Left external ear normal, canal with cerumen impaction Cardiovascular - S1S2, RRR, No edema Respiratory - Normal lung expansion, Normal respiratory effort, No respiratory distress, CTA bilaterally Extremities - no calf tenderness bilaterally, no swelling Skin - Warm/Dry Neurological - Alert & oriented x3 Psychological - Appropriate affect [facility] Medical History (Updated 08/28/24 @ 09:43 by SAMI Monique) Anxiety Prediabetes Hypertriglyceridemia Work-related stress Hyperlipemia GERD (gastroesophageal reflux disease) Surgical History (Updated 08/27/24 @ 16:09 by Twila Ramirez) History of colonoscopy (~10/24/20) History of vasectomy Hx of tonsillectomy Family History (Updated 08/21/24 @ 13:20 by SAMI Monique) Father AML (acute myeloblastic leukemia) Social History (Updated 08/21/24 @ 13:19 by SAMI Monique) Alcohol intake: current Alcohol intake frequency: a few times a week Alcohol type: hard liquor Patient Tobacco Use Status: Never used Tobacco Questionnaire Thrive Questionnaire Date Thrive assessed: 08/21/24 GABE-7 AMB Questionnaire GABE-7 Date GABE - 7 assessed: 08/21/24 Source: Developed by Drs. Kaiden Durant, Caryl Thompson, Kendall webb nd colleagues, with an educational sarah from [employer]. Physical exam (Primary Care) Vital Signs: Last Vital Signs Temp 97.1 F 08/28/24 09:04 Pulse 72 08/28/24 09:04 BP 142/94 H 08/28/24 09:04 Pulse Ox 97 08/28/24 09:04 Oxygen Delivery Method Room Air 08/28/24 09:04 Tobacco/Smoking Status: Tobacco use Status Patient Tobacco Use Status Never used Tobacco 08/28/24 09:09 Thrive Assessment: Date of Thrive Assessment Date Thrive assessed 08/21/24 08/28/24 09:09 Office Procedures Cerumen Removal From which ear canal was the cerumen removed: left Removal: irrigation and otoscope w/curette Notes: patient tolerated procedure well, no complications and ear canal clear [id number] Wax Removal by Spoon/Curette Coding Level of Care Code Est Pt Level 3 (97520) Complex EM visit Add On G2211 Diagnoses Elevated blood pressure reading R03.0 Hypertriglyceridemia E78.1 Prediabetes R73.03 Cerumen impaction H61.20 Hearing loss H91.90 CPT Codes Office Procedure - CPT: 29532-Mtv Wax Removal by Spoon/Curette ([id number]) Assessment & Plan Assessment & Plan (1) Elevated blood pressure reading: Code(s): R03.0 - Elevated blood-pressure reading, without diagnosis of hypertension Category: Medical Plan: BP on recheck controlled. Advised to recheck blood pressures at home. Hold on antihypertensives for now. (2) Hypertriglyceridemia: Code(s): E78.1 - Pure hyperglyceridemia Category: Medical Plan: continue fish oil and diet modifications as discussed (3) Prediabetes: Code(s): R73.03 - Prediabetes Category: Medical Plan: A1c 5.9. Diet moifications (4) Cerumen impaction: Code(s): H61.20 - Impacted cerumen, unspecified ear Category: Medical Plan: Cerumen removes using lavage and currette with resolution of heading loss. Tolerated procedure well. Canal clear, tympanic membrane intact and pearly mccullough. No vertigo (5) Hearing loss: Comment: cerumen impaction Code(s): H91.90 - Unspecified hearing loss, unspecified ear Category: Medical Plan: Cerumen removes using lavage and currette with resolution of heading loss. Tolerated procedure well. Canal clear, tympanic membrane intact and pearly mccullough. No vertigo Plan Follow-up in 6 months with labs completed prior to visit. Continue with healthy lifestyle modifications. Should muffled hearing recur, use Debrox drops and return for cerumen removal Orders: Orders Basic Metabolic Panel 6 Months E78.1 - Pure hyperglyceridemia, E78.5 - Hyperlipidemia, unspecified, R03.0 - Elevated blood-pressure reading, without diagnosis of hypertension, R73.03 - Prediabetes Lipid Panel 6 Months E78.1 - Pure hyperglyceridemia, E78.5 - Hyperlipidemia, unspecified, R03.0 - Elevated blood-pressure reading, without diagnosis of hypertension, R73.03 - Prediabetes Hemoglobin A1c 6 Months R73.03 - Prediabetes Medications: Changed From magnesium oxide 400 mg PO DAILY 90 tabs 0RF To magnesium oxide 800 mg PO DAILY
[2024-08-28 09:04] VITALS: BP 142/94; PULSE 72; TEMP 36.2; O2SAT 97
[2024-08-28 09:56] VITALS: BP 103/57
== END 2024-08-28 09:40 | disposition home or self-care (01) ==
LOC: HO.HMCHD 09:02
PROVIDERS: PCP Physician Assistant; Visit Provider Physician Assistant
DX: R03.0 Elevated blood-pressure reading, without diagnosis of hypertension (principal); E78.1 Pure hyperglyceridemia; R73.03 Prediabetes; H61.22 Impacted cerumen, left ear; H91.92 Unspecified hearing loss, left ear

== ENCOUNTER → 2024-08-28 09:01 | Outpatient (BNVA) | payer OTHER, SELFPAY | PROVIDERS: PCP Physician Assistant; Visit Provider Physician Assistant | DX: H61.23 Impacted cerumen, bilateral (principal) | CPT/HCPCS: 69210 ==